=== PATIENT | female | born 1935 | race Hispanic/Latino ===

== ENCOUNTER 2020-11-03 13:13 | Observation (INO) | payer OTHER ==
[~2020-11-03] VITALS: Ht 162.6 cm; Wt 74.4 kg
[2020-11-03 13:16] VITALS: BP 142/82
[2020-11-03] MEDS ORDERED: MECLIZINE HCL 25 MG TABLET PO SCH (13:45)
[2020-11-03 14:17] LABS: BASOPHILS % (AUTO) 0.5 % (0.0-5.0); EOSINOPHILS % (AUTO) 1.3 % (0.0-8.0); HEMATOCRIT 34.8 % (36-48); LYMPHOCYTES % (AUTO) 22.2 % (21.0-51.0); MEAN CORPUSCULAR HEMOGLOBIN 30.3 pg (27.0-33.0); MEAN CORPUSCULAR VOLUME 91.6 fL (79-99); MONOCYTES % (AUTO) 9.1 % (3.0-13.0); NEUTROPHILS % (AUTO) 66.7 % (40.0-77.0); PLATELET COUNT (AUTO) 233 K/uL (130-400); RED CELL DISTRIBUTION WIDTH 13.8 % (11.0-15.5); WHITE BLOOD COUNT (AUTO) 8.6 K/uL (4.8-10.8)
[2020-11-03 14:26] LABS: CREATININE 0.9 mg/dL (0.5-1.5); POTASSIUM 3.7 mmol/L (3.5-5.1)
[2020-11-03 14:31] LABS: ALBUMIN 3.6 g/dL (3.5-5.0); BILIRUBIN,TOTAL 0.4 mg/dL (0.2-1.0); TOTAL PROTEIN, SERUM 6.9 g/dL (6.0-8.3)
[2020-11-03 14:34] LABS: B-TYPE NATRIURETIC PEPTIDE 92 pg/mL (0-100)
[2020-11-03 14:49] VITALS: BP 130/78
[2020-11-03] MEDS ORDERED: IOHEXOL-350 75 ML VIAL IV ONE (16:01)
[2020-11-03 16:09] VITALS: BP 128/78
[2020-11-03 16:24] LABS: APPEARANCE,URINE Clear (CLEAR); BILIRUBIN,URINE Negative (NEGATIVE); COLOR,URINE Yellow (YELLOW); GLUCOSE, URINE (UA) Negative (NEGATIVE); KETONES,URINE Negative (NEGATIVE); LEUKOCYTE ESTERASE ,URINE Small (NEGATIVE); NITRATE,URINE Negative (NEGATIVE); OCCULT BLOOD,URINE Negative (NEGATIVE); PH,URINE 7.5 (5.0-8.0); PROTEIN,URINE POS 1+ mg/dL (NEGATIVE)
[2020-11-03 16:41] LABS: BACTERIA,URINE Few /HPF (None Seen); MUCUS,URINE Few LPF (None Seen); SQUAMOUS EPITHELIAL CELL,UR Few /HPF (0-2)
[2020-11-03] MEDS ORDERED: ONDANSETRON 4MG INJ IVP PRN (17:00)
[2020-11-03] MEDS ORDERED: LIDOCAINE HCL 2% VISCOUS 15 ML UDCUP PO PRN (17:00)
[2020-11-03] MEDS ORDERED: CLONIDINE HCL 0.1 MG TABLET PO PRN (17:00)
[2020-11-03] MEDS ORDERED: ACETAMINOPHEN 650 MG SUPPOSITORY RC PRN (17:00)
[2020-11-03] MEDS ORDERED: ACETAMINOPHEN 325 MG TAB PO PRN (17:00)
[2020-11-03] MEDS ORDERED: CEFTRIAXONE 1G VIAL IVP SCH (17:00)
[2020-11-03] MEDS ORDERED: ASPIRIN 325MG EC TAB PO ONE (17:00)
[2020-11-03] MEDS ORDERED: NACL 0.9% 1000ML 1,000 ML IV ONE (17:49)
[2020-11-03] MEDS: NACL 0.9% 1000ML 1,000 ML IV SCH (17:52)
[2020-11-03 20:32] VITALS: BP 160/70
[2020-11-03] MEDS ORDERED: FAMOTIDINE 20MG TAB PO SCH (21:00)
[2020-11-03 22:20] VITALS: BP 154/68
[2020-11-04] MEDS ORDERED: MECLIZINE HCL 25 MG TABLET PO PRN (00:45)
[2020-11-04 07:00] VITALS: BP 167/67
[2020-11-04 07:28] LABS: BASOPHILS % (AUTO) 0.5 % (0.0-5.0); EOSINOPHILS % (AUTO) 2.2 % (0.0-8.0); HEMATOCRIT 34.8 % (36-48); LYMPHOCYTES % (AUTO) 18.3 % (21.0-51.0); MEAN CORPUSCULAR HEMOGLOBIN 29.3 pg (27.0-33.0); MEAN CORPUSCULAR HGB CONC 32.2 g/dL (32.0-36.0); MEAN CORPUSCULAR VOLUME 91.1 fL (79-99); MONOCYTES % (AUTO) 8.9 % (3.0-13.0); NEUTROPHILS % (AUTO) 69.7 % (40.0-77.0); PLATELET COUNT (AUTO) 233 K/uL (130-400); RED BLOOD CELL COUNT(AUTO) 3.82 MIL/uL (4.00-5.50); RED CELL DISTRIBUTION WIDTH 13.6 % (11.0-15.5); WHITE BLOOD COUNT (AUTO) 7.7 K/uL (4.8-10.8)
[2020-11-04 07:39] LABS: CREATININE 0.8 mg/dL (0.5-1.5); POTASSIUM 3.5 mmol/L (3.5-5.1)
[2020-11-04 07:48] LABS: HEMOGLOBIN A1C 6.7 % (4.0-6.0)
[2020-11-04] MEDS ORDERED: ASPIRIN 81MG CHEW TAB PO SCH (09:00)
[2020-11-04] MEDS: NACL 0.9% 1000ML 1,000 ML IV SCH (09:13)
[2020-11-04 10:27] VITALS: BP 190/92
[2020-11-04 10:47] VITALS: BP 161/66
[2020-11-04] MEDS ORDERED: AMLO-257 PO (10:57)
[2020-11-04] MEDS ORDERED: PANT40TA54 PO (10:57)
[2020-11-04] MEDS ORDERED: GLIP2.5T PO (10:57)
[2020-11-04] MEDS ORDERED: LEVO100C4 PO (10:57)
[2020-11-04] MEDS ORDERED: LOSA100T58 PO (10:57)
[2020-11-04] MEDS ORDERED: FLUO20CA35 PO (10:57)
[2020-11-04] MEDS ORDERED: ATOR20TA65 PO (10:57)
[2020-11-04] MEDS ORDERED: TRAM50TA4 PO (10:57)
[2020-11-04] MEDS ORDERED: TRAMADOL HCL 50 MG TABLET PO PRN (11:00)
[2020-11-04 12:45] VITALS: BP 155/73
[2020-11-04 15:05] VITALS: BP 149/73
[2020-11-04] MEDS ORDERED: AMOX-426 PO (15:36)
[2020-11-04] MEDS ORDERED: ATORVASTATIN 20 MG TABLET PO SCH (21:00)
[2020-11-05] MEDS ORDERED: LEVOTHYROXINE 100 MCG TABLET PO SCH (07:30)
[2020-11-05] MEDS ORDERED: PANTOPRAZOLE 40 MG TAB DR PO SCH (07:30)
[2020-11-05] MEDS ORDERED: GLIPIZIDE XL 2.5MG TAB PO SCH (08:00)
[2020-11-05] MEDS ORDERED: LOSARTAN 100 MG TABLET PO SCH (09:00)
[2020-11-05] MEDS ORDERED: AMLODIPINE 5 MG TAB PO SCH (09:00)
[2020-11-05] MEDS ORDERED: FLUOXETINE HCL 20 MG CAPSULE PO SCH (09:00)
== END 2020-11-04 15:35 | disposition home or self-care (01) ==
LOC: EDH 13:13 → EDHIP 16:58
PROVIDERS: ADMIT Internal Medicine Critical Care Medicine; ATTEND Internal Medicine Critical Care Medicine
DX: R42 Dizziness and giddiness (principal); K14.0 Glossitis; K14.6 Glossodynia; I10 Essential (primary) hypertension; E03.9 Hypothyroidism, unspecified; E11.9 Type 2 diabetes mellitus without complications; E78.5 Hyperlipidemia, unspecified; Z85.3 Personal history of malignant neoplasm of breast; Z90.11 Acquired absence of right breast and nipple; Z79.899 Other long term (current) drug therapy
CPT/HCPCS: 36415 ×2; 70450; 70496; 70498; 70551; 71045; 80048; 80053; 80061; 81001; 83036; 83880; 84484; 85025 ×2; 96361 ×2; 96374; 99285; G0378 ×22; J0696; J7030 ×2; Q9967

== ENCOUNTER 2020-12-02 06:23 | Day surgery (SDC) | payer OTHER ==
[2020-11-29 16:23] LABS: BASOPHILS % (AUTO) 0.4 % (0.0-5.0); HEMATOCRIT 34.8 % (36-48); LYMPHOCYTES % (AUTO) 27.3 % (21.0-51.0); MEAN CORPUSCULAR HEMOGLOBIN 29.6 pg (27.0-33.0); MEAN CORPUSCULAR HGB CONC 31.9 g/dL (32.0-36.0); MEAN CORPUSCULAR VOLUME 92.8 fL (79-99); MONOCYTES % (AUTO) 8.2 % (3.0-13.0); NEUTROPHILS % (AUTO) 61.8 % (40.0-77.0); PLATELET COUNT (AUTO) 246 K/uL (130-400); RED BLOOD CELL COUNT(AUTO) 3.75 MIL/uL (4.00-5.50); RED CELL DISTRIBUTION WIDTH 13.7 % (11.0-15.5); WHITE BLOOD COUNT (AUTO) 7.6 K/uL (4.8-10.8)
[2020-11-29 16:43] LABS: CREATININE 0.9 mg/dL (0.5-1.5); POTASSIUM 3.7 mmol/L (3.5-5.1)
[2020-12-01 11:31] VITALS: BP 169/73
[~2020-12-02] VITALS: Ht 162.6 cm; Wt 72.4 kg
[2020-12-02] VITALS (16 sets, daily range): BP systolic 128–160; BP diastolic 42–81
[~2020-12-02 06:23] MED LIST: AMLO-257 PO; ATOR20TA65 PO; FLUO20CA35 PO; GLIP2.5T PO; LEVO100C4 PO; LOSA100T58 PO; PANT40TA54 PO; TRAM50TA4 PO; VITAMIN B12 IM
[2020-12-02] MEDS ORDERED: SUCCINYLCHOLINE CHLORIDE 20 MG/ML 10 ML VIAL ONE (07:21)
[2020-12-02] MEDS ORDERED: LIDOCAINE PF 100MG/5ML (2%) SYRINGE 5ML ONE (07:21)
[2020-12-02] MEDS ORDERED: FENTANYL CITRATE PF 50 MCG/1 ML 2ML VIAL ONE (07:22)
[2020-12-02] MEDS ORDERED: PROPOFOL 10 MG/ML 20ML VIAL IV ONE (07:22)
[2020-12-02] MEDS ORDERED: 0.9%NACL 1000ML 1,000 ML IV ONE (07:32)
[2020-12-02] MEDS: CEFAZOLIN SODIUM 1 GM VIAL ONE ×2 (07:41→07:45)
[2020-12-02] MEDS ORDERED: DEXAMETHASONE SOD PHOSPHATE 10MG/ML 1ML VIAL ONE (07:49)
[2020-12-02] MEDS ORDERED: EPHEDRINE SULFATE 50 MG/ML AMPULE ONE (08:10)
== END 2020-12-02 10:00 | disposition home or self-care (01) ==
LOC: DAH 06:23
PROVIDERS: ATTEND Otolaryngology Plastic Surgery within the Head & Neck
DX: C02.1 Malignant neoplasm of border of tongue (principal); Z20.822 Contact with and (suspected) exposure to COVID-19; I10 Essential (primary) hypertension; E78.5 Hyperlipidemia, unspecified; E11.9 Type 2 diabetes mellitus without complications; Z79.84 Long term (current) use of oral hypoglycemic drugs; Z79.890 Hormone replacement therapy; Z79.899 Other long term (current) drug therapy; Z98.890 Other specified postprocedural states
CPT/HCPCS: 36415; 41120; 80048; 82948 ×2; 85025; 87635; 93005; A4215; A4221; A4222; A4223; A4663; C9803; J0330; J0690; J1100; J2001; J2704; J3010; J7030; J3490

== ENCOUNTER → 2021-04-11 | Outpatient (CLI) | payer OTHER ==
[~2021-04-11] MED LIST changes: -FLUO20CA35 PO; +FLUO20CA36 PO
== END | disposition home or self-care (01) ==
LOC: OIH 09:40
PROVIDERS: ATTEND Family Medicine
DX: S22.089A Unspecified fracture of T11-T12 vertebra, initial encounter for closed fracture (principal); M25.551 Pain in right hip; M25.552 Pain in left hip; Z90.49 Acquired absence of other specified parts of digestive tract; X58.XXXA Exposure to other specified factors, initial encounter; Y93.89 Activity, other specified; Y92.89 Other specified places as the place of occurrence of the external cause; Y99.8 Other external cause status
CPT/HCPCS: 72100; 73521

== ENCOUNTER 2023-04-12 17:28 | Inpatient (IN) | payer MEDICARE, OTHER ==
[~2023-04-12] VITALS: Ht 157.5 cm; Wt 75.9 kg
[~2023-04-12 17:28] MED LIST changes: -LOSA100T58 PO; +LOSA100T59 PO
[2023-04-12 19:15] LABS: BASOPHILS # (AUTO) 0.03 K/uL (0.00-0.20); BASOPHILS % (AUTO) 0.2 % (0.0-5.0); EOSINOPHILS # (AUTO) 0.14 K/uL (0.00-0.70); EOSINOPHILS % (AUTO) 1.1 % (0.0-8.0); HEMATOCRIT 30.7 % (36-48); IMMATURE GRANULOCYTE ABSOLUTE 0.05 K/uL (0-1); LYMPHOCYTES # (AUTO) 1.5 K/uL (1.0-4.8); MEAN CORPUSCULAR HEMOGLOBIN 29.1 pg (27.0-33.0); MEAN CORPUSCULAR HGB CONC 31.9 g/dL (32.0-36.0); MEAN CORPUSCULAR VOLUME 91.1 fL (79-99); MONOCYTES # (AUTO) 0.8 K/uL (0.1-1.0); MONOCYTES % (AUTO) 6.6 % (3.0-13.0); NEUTROPHILS # (AUTO) 9.8 K/uL (1.8-7.7); NEUTROPHILS % (AUTO) 79.7 % (40.0-77.0); PLATELET COUNT (AUTO) 199 K/uL (130-400); RED BLOOD CELL COUNT(AUTO) 3.37 MIL/uL (4.00-5.50); RED CELL DISTRIBUTION WIDTH 14.4 % (11.0-15.5); WHITE BLOOD COUNT (AUTO) 12.3 K/uL (4.8-10.8)
[2023-04-12 19:17] LABS: APPEARANCE,URINE CLEAR (CLEAR); BILIRUBIN,URINE NEGATIVE (NEGATIVE); COLOR,URINE LIGHT-YELLOW (YELLOW); GLUCOSE, URINE (UA) NEGATIVE (NEGATIVE); KETONES,URINE NEGATIVE (NEGATIVE); LEUKOCYTE ESTERASE ,URINE 25 Leu/uL (NEGATIVE); NITRATE,URINE NEGATIVE (NEGATIVE); OCCULT BLOOD,URINE NEGATIVE (NEGATIVE); PROTEIN,URINE NEGATIVE (NEGATIVE); UROBILINOGEN,URINE 0.2 mg/dL (0.2-1.0)
[2023-04-12 19:18] LABS: ADD UA MICROSCOPIC YES
[2023-04-12 19:19] LABS: BACTERIA,URINE RARE /HPF (None Seen); MUCUS,URINE RARE LPF (None Seen); SQUAMOUS EPITHELIAL CELL,UR RARE /HPF (0-2)
[2023-04-12 19:32] LABS: ALBUMIN 3.3 g/dL (3.5-5.0); BILIRUBIN,TOTAL 0.3 mg/dL (0.2-1.0); CREATININE 1.7 mg/dL (0.5-1.5); POTASSIUM 3.9 mmol/L (3.5-5.1); TOTAL PROTEIN, SERUM 6.6 g/dL (6.0-8.3)
[2023-04-12] MEDS ORDERED: ONDANSETRON 4MG INJ IVP ONE (21:00)
[2023-04-12] MEDS ORDERED: MORPHINE 2 MG SYG IVP ONE (21:00)
[2023-04-12] MEDS ORDERED: LACTULOSE 20 GM/30 ML UDCUP PO PRN (21:30)
[2023-04-12] MEDS ORDERED: ACETAMINOPHEN 650 MG SUPPOSITORY RC PRN (21:30)
[2023-04-12] MEDS ORDERED: DOCUSATE SODIUM 100 MG CAP PO PRN (21:30)
[2023-04-12] MEDS ORDERED: LABETALOL 20MG SYG IV PRN (21:30)
[2023-04-12] MEDS ORDERED: CLONIDINE HCL 0.1 MG TABLET PO PRN (21:30)
[2023-04-12] MEDS ORDERED: ACETAMINOPHEN 325 MG TAB PO PRN (21:30)
[2023-04-12] MEDS ORDERED: HYDRALAZINE 20MG/ML VIAL IV PRN (21:30)
[2023-04-12] MEDS ORDERED: ONDANSETRON 4MG INJ IVP PRN (21:30)
[2023-04-12] MEDS ORDERED: TEMAZEPAM 15 MG CAPSULE PO PRN (21:30)
[2023-04-12] MEDS ORDERED: MORPHINE 4 MG SYG IVP PRN ×2 (21:30→22:00)
[2023-04-12] MEDS ORDERED: MELO-106 PO (21:50)
[2023-04-12] MEDS ORDERED: LOSA100T59 PO (21:50)
[2023-04-12] MEDS ORDERED: HYDR25TA PO (21:50)
[2023-04-12] MEDS ORDERED: METF-526 PO (21:50)
[2023-04-12] MEDS ORDERED: PANT40TA54 PO (21:50)
[2023-04-12] MEDS ORDERED: CITA-107 PO (21:50)
[2023-04-12] MEDS ORDERED: LEVO75TA10 PO (21:50)
[2023-04-12] MEDS ORDERED: GLIP2.5T2 PO (21:50)
[2023-04-12] MEDS ORDERED: QUET50TA24 PO (21:50)
[2023-04-12] MEDS ORDERED: TRAM50TA4 PO (21:50)
[2023-04-12] MEDS ORDERED: ATOR20TA65 PO (21:50)
[2023-04-12 21:53] LABS: INR 0.95 (0.85-1.15); PROTHROMBIN TIME 11.1 SEC (9.6-11.6)
[2023-04-12 21:54] LABS: PARTIAL THROMBOPLASTIN TIME 25.9 SEC (26.3-35.5)
[2023-04-12] MEDS: LACTATED RINGERS 1000ML 1,000 ML IV SCH (23:00)
[2023-04-12] MEDS: CEFTRIAXONE 2GM VIAL IVPB SCH (23:03)
[2023-04-12] MEDS: TRAMADOL HCL 50 MG TABLET PO PRN (23:08)
[2023-04-13] VITALS (9 sets, daily range): BP systolic 108–142; BP diastolic 51–85; PULSE 54–84; RESP 16–20; O2SAT 96–97
[2023-04-13 01:29] LABS: SARS-CoV-2, RNA, NAAT NEGATIVE SARS CoV-2 (NEGATIVE)
[2023-04-13 01:33] LABS: INFLUENZA TYPE A Negative For Type A (NEGATIVE); INFLUENZA TYPE B Negative For Type B (NEGATIVE)
[2023-04-13 03:42] LABS: BASOPHILS # (AUTO) 0.02 K/uL (0.00-0.20); BASOPHILS % (AUTO) 0.2 % (0.0-5.0); EOSINOPHILS # (AUTO) 0.03 K/uL (0.00-0.70); EOSINOPHILS % (AUTO) 0.4 % (0.0-8.0); HEMATOCRIT 26.5 % (36-48); IMMATURE GRANULOCYTE ABSOLUTE 0.03 K/uL (0-1); LYMPHOCYTES # (AUTO) 0.9 K/uL (1.0-4.8); LYMPHOCYTES % (AUTO) 11.3 % (21.0-51.0); MEAN CORPUSCULAR HEMOGLOBIN 28.6 pg (27.0-33.0); MEAN CORPUSCULAR HGB CONC 31.7 g/dL (32.0-36.0); MEAN CORPUSCULAR VOLUME 90.1 fL (79-99); MONOCYTES # (AUTO) 0.7 K/uL (0.1-1.0); MONOCYTES % (AUTO) 8.2 % (3.0-13.0); NEUTROPHILS # (AUTO) 6.6 K/uL (1.8-7.7); NEUTROPHILS % (AUTO) 79.5 % (40.0-77.0); PLATELET COUNT (AUTO) 180 K/uL (130-400); RED BLOOD CELL COUNT(AUTO) 2.94 MIL/uL (4.00-5.50); RED CELL DISTRIBUTION WIDTH 14.5 % (11.0-15.5); WHITE BLOOD COUNT (AUTO) 8.3 K/uL (4.8-10.8)
[2023-04-13 04:07] LABS: CREATININE 1.5 mg/dL (0.5-1.5); MAGNESIUM 1.4 mg/dL (1.80-2.40); POTASSIUM 4.3 mmol/L (3.5-5.1); THYROID STIMULATING HORMONE 0.92 uIU/mL (0.36-3.74)
[2023-04-13 04:13] LABS: HEMOGLOBIN A1C 6.6 % (4.0-6.0)
[2023-04-13] MEDS: LEVOTHYROXINE 75 MCG TABLET PO SCH (06:33)
[2023-04-13] MEDS: INSULIN HUMULIN R 100 UNIT/ML 3ML SQ SCH ×4 (06:34→20:43)
[2023-04-13] MEDS ORDERED: DEXTROSE 50%-WATER 50 ML DISP.SYRIN IV PRN (08:00)
[2023-04-13] MEDS ORDERED: GLUCAGON 1MG KIT 1 MG ML IM PRN (08:00)
[2023-04-13] MEDS ORDERED: POTASSIUM CHLORIDE 10% ELIXIR 20 MEQ/15 ML UDCUP PO PRN (08:00)
[2023-04-13] MEDS ORDERED: KCL 20 MEQ ERTAB PO PRN (08:00)
[2023-04-13] MEDS ORDERED: POTASSIUM CHLORIDE 20MEQ/100ML 100 ML IV PRN (08:00)
[2023-04-13] MEDS: PANTOPRAZOLE 40 MG/VIAL IVP SCH ×2 (08:35→20:41)
[2023-04-13] MEDS: MELOXICAM 7.5 MG TABLET PO SCH (08:36)
[2023-04-13] MEDS: CITALOPRAM 20 MG TABLET PO SCH (08:36)
[2023-04-13] MEDS: TRAMADOL HCL 50 MG TABLET PO PRN ×2 (08:36→14:27)
[2023-04-13] MEDS: MAGNESIUM 2GM PREMIX 50ML 50 ML IV PRN (08:36)
[2023-04-13] MEDS: HYDROCHLOROTHIAZIDE 25 MG TABLET PO SCH (08:43)
[2023-04-13] MEDS: LOSARTAN 100 MG TABLET PO SCH (08:43)
[2023-04-13] MEDS: LACTATED RINGERS 1000ML 1,000 ML IV SCH (10:50)
[2023-04-13] MEDS: ATORVASTATIN 20 MG TABLET PO SCH (20:41)
[2023-04-13] MEDS: QUETIAPINE FUMARATE 25 MG TAB PO SCH (20:41)
[2023-04-13] MEDS: CEFTRIAXONE 2GM VIAL IVPB SCH (23:09)
[2023-04-14] VITALS (30 sets, daily range): BP systolic 125–205; BP diastolic 53–110; PULSE 17–118; RESP 15–20; O2SAT 95–97
[2023-04-14] MEDS: LACTATED RINGERS 1000ML 1,000 ML IV SCH ×2 (00:15→13:30)
[2023-04-14 03:51] LABS: HEMATOCRIT 26.2 % (36-48); MEAN CORPUSCULAR HEMOGLOBIN 28.2 pg (27.0-33.0); MEAN CORPUSCULAR HGB CONC 31.7 g/dL (32.0-36.0); MEAN CORPUSCULAR VOLUME 89.1 fL (79-99); RED BLOOD CELL COUNT(AUTO) 2.94 MIL/uL (4.00-5.50); RED CELL DISTRIBUTION WIDTH 14.7 % (11.0-15.5); WHITE BLOOD COUNT (AUTO) 9.1 K/uL (4.8-10.8)
[2023-04-14 04:01] LABS: CREATININE 1.4 mg/dL (0.5-1.5); MAGNESIUM 1.8 mg/dL (1.80-2.40); POTASSIUM 3.9 mmol/L (3.5-5.1)
[2023-04-14] MEDS: LEVOTHYROXINE 75 MCG TABLET PO SCH (05:55)
[2023-04-14] MEDS: INSULIN HUMULIN R 100 UNIT/ML 3ML SQ SCH ×4 (05:55→20:10)
[2023-04-14] MEDS ORDERED: LIDOCAINE PF 100MG/5ML (2%) SYRINGE 5ML ONE (07:47)
[2023-04-14] MEDS ORDERED: FENTANYL CITRATE PF 50 MCG/1 ML 2ML VIAL ONE ×2 (07:47→09:59)
[2023-04-14] MEDS ORDERED: PROPOFOL 10 MG/ML 20ML VIAL IV ONE (07:47)
[2023-04-14] MEDS ORDERED: ROCURONIUM 10MG/1ML SYR 10 MG/ML ML ONE (07:48)
[2023-04-14] MEDS ORDERED: PHENYLEPHRINE HCL 10 MG/ML 1ML VIAL IV ONE (07:49)
[2023-04-14] MEDS ORDERED: GLYCOPYRROLATE 1 MG/5 ML SYRINGE ONE (07:50)
[2023-04-14] MEDS ORDERED: NEOSTIGMINE 5MG/5ML SYR IV ONE (07:50)
[2023-04-14] MEDS ORDERED: ONDANSETRON 4MG INJ ONE (07:50)
[2023-04-14] MEDS ORDERED: ROPIVACAINE 0.5% 5MG/ML 30ML ONE (07:55)
[2023-04-14] MEDS: PANTOPRAZOLE 40 MG/VIAL IVP SCH ×2 (07:56→20:12)
[2023-04-14] MEDS: CITALOPRAM 20 MG TABLET PO SCH (07:56)
[2023-04-14] MEDS: HYDROCHLOROTHIAZIDE 25 MG TABLET PO SCH (07:56)
[2023-04-14] MEDS: MELOXICAM 7.5 MG TABLET PO SCH (07:56)
[2023-04-14] MEDS: LOSARTAN 100 MG TABLET PO SCH (07:56)
[2023-04-14] MEDS ORDERED: ALBUMIN (HUMAN) 5% 250 ML IV ONE (09:08)
[2023-04-14] MEDS ORDERED: LABETALOL 20MG VIAL IV ONE (10:21)
[2023-04-14] MEDS ORDERED: MORPHINE 2 MG SYG IVP PRN (12:00)
[2023-04-14] MEDS ORDERED: AMLODIPINE 5 MG TAB PO ONE (12:30)
[2023-04-14] MEDS ORDERED: POLYETHYLENE GLYCOL 3350 17 GM POWD.PACK PO ONE (12:30)
[2023-04-14] MEDS: QUETIAPINE FUMARATE 25 MG TAB PO SCH (20:12)
[2023-04-14] MEDS: ATORVASTATIN 20 MG TABLET PO SCH (20:13)
[2023-04-14] MEDS: HYDROCODONE/ACETAMINOPHEN 5/325 MG TAB PO PRN (20:13)
[2023-04-14] MEDS: CEFTRIAXONE 2GM VIAL IVPB SCH (23:05)
[2023-04-15] VITALS (7 sets, daily range): BP systolic 103–116; BP diastolic 47–55; PULSE 64–72; RESP 16–18; O2SAT 94–96
[2023-04-15] MEDS: LACTATED RINGERS 1000ML 1,000 ML IV SCH ×2 (01:57→16:10)
[2023-04-15] MEDS: INSULIN HUMULIN R 100 UNIT/ML 3ML SQ SCH ×4 (06:01→20:53)
[2023-04-15] MEDS: LEVOTHYROXINE 75 MCG TABLET PO SCH (06:31)
[2023-04-15] MEDS: POLYETHYLENE GLYCOL 3350 17 GM POWD.PACK PO SCH (08:36)
[2023-04-15] MEDS: MELOXICAM 7.5 MG TABLET PO SCH (08:36)
[2023-04-15] MEDS: CITALOPRAM 20 MG TABLET PO SCH (08:36)
[2023-04-15] MEDS: LOSARTAN 100 MG TABLET PO SCH (08:36)
[2023-04-15] MEDS: HYDROCHLOROTHIAZIDE 25 MG TABLET PO SCH (08:36)
[2023-04-15] MEDS: AMLODIPINE 5 MG TAB PO SCH (08:36)
[2023-04-15] MEDS: ENOXAPARIN SODIUM 30 MG/0.3 ML SQ SCH (08:38)
[2023-04-15] MEDS: PANTOPRAZOLE 40 MG/VIAL IVP SCH ×2 (08:43→20:51)
[2023-04-15] MEDS: HYDROCODONE/ACETAMINOPHEN 5/325 MG TAB PO PRN (10:51)
[2023-04-15] MEDS: QUETIAPINE FUMARATE 25 MG TAB PO SCH (20:52)
[2023-04-15] MEDS: ATORVASTATIN 20 MG TABLET PO SCH (20:52)
[2023-04-16] VITALS (8 sets, daily range): BP systolic 109–139; BP diastolic 48–68; PULSE 71–90; RESP 18–19; O2SAT 96–98
[2023-04-16] MEDS: CEFTRIAXONE 2GM VIAL IVPB SCH ×2 (05:01→19:45)
[2023-04-16] MEDS: LACTATED RINGERS 1000ML 1,000 ML IV SCH (05:02)
[2023-04-16] MEDS: INSULIN HUMULIN R 100 UNIT/ML 3ML SQ SCH ×4 (05:57→20:17)
[2023-04-16] MEDS: LEVOTHYROXINE 75 MCG TABLET PO SCH ×2 (06:03→08:51)
[2023-04-16] MEDS: PANTOPRAZOLE 40 MG/VIAL IVP SCH (08:50)
[2023-04-16] MEDS: MELOXICAM 7.5 MG TABLET PO SCH (08:50)
[2023-04-16] MEDS: AMLODIPINE 5 MG TAB PO SCH (08:51)
[2023-04-16] MEDS: LOSARTAN 100 MG TABLET PO SCH (08:52)
[2023-04-16] MEDS: CITALOPRAM 20 MG TABLET PO SCH (08:52)
[2023-04-16] MEDS: POLYETHYLENE GLYCOL 3350 17 GM POWD.PACK PO SCH (08:55)
[2023-04-16] MEDS: HYDROCHLOROTHIAZIDE 25 MG TABLET PO SCH (08:55)
[2023-04-16] MEDS: ENOXAPARIN SODIUM 30 MG/0.3 ML SQ SCH (09:02)
[2023-04-16] MEDS: HYDROCODONE/ACETAMINOPHEN 5/325 MG TAB PO PRN (12:03)
[2023-04-16] MEDS: PANTOPRAZOLE 40 MG TAB DR PO SCH (19:45)
[2023-04-16] MEDS: QUETIAPINE FUMARATE 25 MG TAB PO SCH (19:45)
[2023-04-16] MEDS: ATORVASTATIN 20 MG TABLET PO SCH (19:45)
[2023-04-17] VITALS (7 sets, daily range): BP systolic 107–131; BP diastolic 50–59; PULSE 68–79; RESP 16–18; O2SAT 95–98
[2023-04-17] MEDS: HYDROCODONE/ACETAMINOPHEN 5/325 MG TAB PO PRN (04:28)
[2023-04-17 04:40] LABS: HEMATOCRIT 24.5 % (36-48); MEAN CORPUSCULAR HEMOGLOBIN 29.2 pg (27.0-33.0); MEAN CORPUSCULAR HGB CONC 32.7 g/dL (32.0-36.0); MEAN CORPUSCULAR VOLUME 89.4 fL (79-99); RED BLOOD CELL COUNT(AUTO) 2.74 MIL/uL (4.00-5.50); WHITE BLOOD COUNT (AUTO) 7.5 K/uL (4.8-10.8)
[2023-04-17 04:50] LABS: CREATININE 1.5 mg/dL (0.5-1.5); MAGNESIUM 1.8 mg/dL (1.80-2.40); POTASSIUM 3.9 mmol/L (3.5-5.1)
[2023-04-17] MEDS: MAGNESIUM 2GM PREMIX 50ML 50 ML IV PRN (05:01)
[2023-04-17] MEDS: INSULIN HUMULIN R 100 UNIT/ML 3ML SQ SCH ×4 (05:14→20:24)
[2023-04-17] MEDS: POLYETHYLENE GLYCOL 3350 17 GM POWD.PACK PO SCH (08:02)
[2023-04-17] MEDS: MELOXICAM 7.5 MG TABLET PO SCH (08:02)
[2023-04-17] MEDS: ENOXAPARIN SODIUM 30 MG/0.3 ML SQ SCH (08:02)
[2023-04-17] MEDS: LEVOTHYROXINE 75 MCG TABLET PO SCH (08:02)
[2023-04-17] MEDS: CITALOPRAM 20 MG TABLET PO SCH (08:03)
[2023-04-17] MEDS: AMLODIPINE 5 MG TAB PO SCH (08:03)
[2023-04-17] MEDS: HYDROCHLOROTHIAZIDE 25 MG TABLET PO SCH (08:03)
[2023-04-17] MEDS: PANTOPRAZOLE 40 MG TAB DR PO SCH ×2 (08:03→19:15)
[2023-04-17] MEDS: LOSARTAN 100 MG TABLET PO SCH (08:03)
[2023-04-17] MEDS ORDERED: MAGNESIUM 2GM PREMIX 50ML 50 ML IV PRN (11:30)
[2023-04-17] MEDS: QUETIAPINE FUMARATE 25 MG TAB PO SCH (19:15)
[2023-04-17] MEDS: ATORVASTATIN 20 MG TABLET PO SCH (19:15)
[2023-04-17] MEDS: CEFTRIAXONE 2GM VIAL IVPB SCH (19:16)
[2023-04-18] VITALS: BP 134/59; PULSE 77; RESP 16
[2023-04-18] MEDS: HYDROCODONE/ACETAMINOPHEN 5/325 MG TAB PO PRN (00:37)
[2023-04-18 04:00] VITALS: BP 127/63; PULSE 67; RESP 18
[2023-04-18] MEDS: INSULIN HUMULIN R 100 UNIT/ML 3ML SQ SCH ×2 (05:43→12:20)
[2023-04-18] MEDS ORDERED: LEVOTHYROXINE 75 MCG TABLET PO SCH (06:30)
[2023-04-18 07:10] VITALS: O2SAT 95
[2023-04-18 08:00] VITALS: BP 146/70; PULSE 66; RESP 16
[2023-04-18] MEDS: LOSARTAN 100 MG TABLET PO SCH (10:08)
[2023-04-18] MEDS: HYDROCHLOROTHIAZIDE 25 MG TABLET PO SCH (10:08)
[2023-04-18] MEDS: ENOXAPARIN SODIUM 30 MG/0.3 ML SQ SCH (10:08)
[2023-04-18] MEDS: MELOXICAM 7.5 MG TABLET PO SCH (10:08)
[2023-04-18] MEDS: POLYETHYLENE GLYCOL 3350 17 GM POWD.PACK PO SCH (10:08)
[2023-04-18] MEDS: AMLODIPINE 5 MG TAB PO SCH (10:09)
[2023-04-18] MEDS: PANTOPRAZOLE 40 MG TAB DR PO SCH (10:09)
[2023-04-18] MEDS: CITALOPRAM 20 MG TABLET PO SCH (10:09)
[2023-04-18 12:00] VITALS: BP 92/56; PULSE 74; RESP 19
[2023-04-18] MEDS ORDERED: ONDANSETRON 4MG TABLET PO PRN (15:30)
== END 2023-04-18 17:00 | DRG 483 ==
LOC: EDH 17:28 → OBSVTOIN 21:17 → EDHIP 21:17 → 4AH 04-13 01:19
PROVIDERS: ADMIT Internal Medicine Critical Care Medicine; ATTEND Internal Medicine Critical Care Medicine
PROC: 0RRJ00Z Replacement of Right Shoulder Joint with Reverse Ball and Socket Synthetic Substitute, Open Approach (ICD-10-PCS; 2023-04-14)
PROC: 30233N1 Transfusion of Nonautologous Red Blood Cells into Peripheral Vein, Percutaneous Approach (ICD-10-PCS; principal; 2023-04-14 07:55)
DX: S42.291A Other displaced fracture of upper end of right humerus, initial encounter for closed fracture (principal); N17.9 Acute kidney failure, unspecified; N39.0 Urinary tract infection, site not specified; D63.8 Anemia in other chronic diseases classified elsewhere; E11.65 Type 2 diabetes mellitus with hyperglycemia; E11.22 Type 2 diabetes mellitus with diabetic chronic kidney disease; I12.9 Hypertensive chronic kidney disease with stage 1 through stage 4 chronic kidney disease, or unspecified chronic kidney disease; E03.9 Hypothyroidism, unspecified; B96.20 Unspecified Escherichia coli [E. coli] as the cause of diseases classified elsewhere; M85.811 Other specified disorders of bone density and structure, right shoulder; M43.12 Spondylolisthesis, cervical region; N18.30 Chronic kidney disease, stage 3 unspecified; F32.A Depression, unspecified; M47.812 Spondylosis without myelopathy or radiculopathy, cervical region; Y93.01 Activity, walking, marching and hiking; W18.30XA Fall on same level, unspecified, initial encounter; Y92.89 Other specified places as the place of occurrence of the external cause; Y99.8 Other external cause status; Z85.3 Personal history of malignant neoplasm of breast; Z90.11 Acquired absence of right breast and nipple; Z90.710 Acquired absence of both cervix and uterus
CPT/HCPCS: 36415; 70450; 70486; 71045; 72125; 73030; 73060; 73090; 73130; 80048; 80053; 81001; 82948; 83036; 83735; 84100; 84443; 84484; 85025; 85027; 85610; 85730; 86850; 86900; 86901; 86923; 87077; 87088; 87186; 87635; 87804; 93005; A4565; C1776; C9113; G0378; J0696; J1650; J1815; J2001; J2270; J2371; J2405; J2704; J2710; J2795; J3010; J3475; J3490; J7030; J7120; P9016; P9045; A4216; A4222; A4223; A4600; A4649; A4930; A6219; A6223